=== PATIENT | female | born 1995 | race Caucasian/White ===

== ENCOUNTER → 2018-09-04 | Outpatient (CLI) | payer OTHER, MEDICAID ==
[~2018-09-04] MED LIST: ACET325C5 PO; DEXA4TAB66 PO; OMNIPAQUE 350 MG/ML, 100ML BOTTLE ONE; ONDA4TAB7 PO; PROC10TA2 PO
== END | disposition home or self-care (01) ==
LOC: CFH 11:17
PROVIDERS: ATTEND Specialist
DX: Z51.11 Encounter for antineoplastic chemotherapy (principal); C56.2 Malignant neoplasm of left ovary
CPT/HCPCS: 71260; 74177; Q9967